=== PATIENT | female | born 1985 | race Hispanic/Latino ===

== ENCOUNTER 2017-01-11 15:34 | Emergency (ER) | payer SELFPAY ==
[2017-01-11] MEDS ORDERED: Ondansetron ODT 4 MG TAB ONE (16:29)
== END 2017-01-11 17:57 | disposition home or self-care (01) ==
LOC: ERS 15:34
DX: R11.2 Nausea with vomiting, unspecified (principal)
CPT/HCPCS: 36416; 81025; 99284; Q0162

== ENCOUNTER 2017-06-17 01:16 | Emergency (ER) | payer SELFPAY ==
[2017-06-17] MEDS ORDERED: Lidocaine 4% Topical Sol 50 ML BOT ONE (01:46)
[2017-06-17] MEDS ORDERED: Lidocaine Viscous Sol 2% 15 ml UD Cup ONE (01:46)
== END 2017-06-17 02:48 | disposition home or self-care (01) ==
LOC: ERS 01:16
DX: H61.21 Impacted cerumen, right ear (principal)
CPT/HCPCS: 69210; J2001

== ENCOUNTER 2017-09-19 14:22 | Emergency (ER) | payer OTHER, SELFPAY ==
[2017-09-19] MEDS ORDERED: Cyclobenzaprine 10 MG TAB ONE (15:11)
[2017-09-19] MEDS ORDERED: Ibuprofen 800 MG TAB ONE (15:11)
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
== END 2017-09-19 16:24 | disposition home or self-care (01) ==
LOC: ERS 14:22
DX: S16.1XXA Strain of muscle, fascia and tendon at neck level, initial encounter (principal); V43.92XA Unspecified car occupant injured in collision with other type car in traffic accident, initial encounter
CPT/HCPCS: 72040